=== PATIENT | male | born 1985 ===

== ENCOUNTER 2024-06-10 10:00 | Emergency (ER) | payer OTHER, SELFPAY ==
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
[2024-06-10 10:17] VITALS: BP 138/78; PULSE 80; RESP 16; TEMP 36.5; O2SAT 99; BMI 31.7
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
[2024-06-10 12:17] VITALS: BP 138/78; PULSE 80; RESP 16; TEMP 36.5; O2SAT 99
== END 2024-06-10 12:18 | disposition home or self-care (01) ==
PROVIDERS: Emergency Provider Emergency Medicine
DX: S16.1XXA Strain of muscle, fascia and tendon at neck level, initial encounter (principal); M54.2 Cervicalgia; V43.52XA Car driver injured in collision with other type car in traffic accident, initial encounter; Y93.89 Activity, other specified; Y92.488 Other paved roadways as the place of occurrence of the external cause; Y99.8 Other external cause status
CPT/HCPCS: 72040; 99283